=== PATIENT | male | born 1990 | race Caucasian/White ===

== ENCOUNTER 2018-05-16 18:18 | Emergency (ER) | payer MEDICAID, OTHER ==
[2018-05-16 18:48] VITALS: BP 135/93
[2018-05-16] MEDS ORDERED: Tetracaine 0.5% OPTH.SOL 15ML* BTL LEFT EYE ONE (18:52)
[2018-05-16] MEDS ORDERED: Eye Irrigation Solution 30 ML BOTTLE LEFT EYE ONE (18:52)
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
[2018-05-16] MEDS ORDERED: Tetracaine 0.5% OPTH.SOL 4 ML* 1 DROP BTL ONE (18:55)
[2018-05-16] MEDS ORDERED: Fluorescein Sodium TOPICAL* 1 MG TEST STRIP ONE (19:00)
[2018-05-16] MEDS ORDERED: Fluorescein Sodium TOPICAL* 1 MG TEST STRIP OPHTHALMIC ONE (19:20)
[2018-05-16] MEDS ORDERED: Tetan/Diph/Pertus SYR(Tdap)* 0.5 ML SYR(BOOSTRIX) use SYR IM ONE (19:23)
--- NOTE | 2018-05-17 14:48 | UC ---
- Progress Note Progress Note: 05/17/[address] found out that DR Forrester's office is open today until 1400PM. I contacted Pt' s cell phone earlier to left him know that he can be seen today by Dr Forrester. Pt' s phone is wrong, no answer. Pt's father who is the emergency contact was called and a message was left on voice mail to have Pt call back. Selena Pardo PA-C Discharge - Sign-Out/Discharge Documenting (check all that apply): Patient Departure - D/c home All imaging exams completed and their final reports reviewed: No Studies - Discharge Plan Condition: Stable Disposition: HOME Prescriptions: Erythromycin OPTH OINT* [Erythromycin 0.5% OPTH OINT*] 1 applic RIGHT EYE TID # 1 ophth.oint Patient Education Materials: Corneal Abrasion (ED), Eye Foreign Body (ED), Low- Sodium Diet (ED) Forms: *Work Release Referrals: [facility] – [place] [facility] REFERR[facility] [Outside] Anton Forrester MD [Medical Doctor] - 1 Day Additional Instructions: 1-Please apply ophthalmic oint as instructed to avoid any infection. You were given Tetanus vaccine today 2-Please f/u w/ Senior Strategy Manager Dr Forrester as soon as possible for further evaluation and treatment. 3-Keep your eye cover w/ the eye patch x 1 day for comfort. 4-Your BP is elevated today. please decrease salt in your diet, monitor BP and if it continues to be elevated please f/u with your PCP for further management - Billing Disposition and Condition Condition: STABLE Disposition: Home - Attestation Statements Provider Attestation: I was available for consult. This patient was seen by the MORE. The patient was not presented to, seen by, or examined by me. -Talia
== END 2018-05-16 20:00 | disposition home or self-care (01) ==
LOC: UCEAST 18:18
DX: T15.91XA Foreign body on external eye, part unspecified, right eye, initial encounter (principal); S05.01XA Injury of conjunctiva and corneal abrasion without foreign body, right eye, initial encounter; R03.0 Elevated blood-pressure reading, without diagnosis of hypertension; X58.XXXA Exposure to other specified factors, initial encounter; Z88.0 Allergy status to penicillin; Y92.9 Unspecified place or not applicable
CPT/HCPCS: 90471; 90715; 99202; A9270-GY; G0463

== ENCOUNTER 2019-01-11 18:54 | Emergency (ER) | payer OTHER ==
[2019-01-11] MEDS ORDERED: Proparacaine 0.5% OPHTH.SOL* 15 ML BTL LEFT EYE ONE (19:21)
[2019-01-11] MEDS ORDERED: Fluorescein Sodium TOPICAL* 1 MG TEST STRIP OPHTHALMIC ONE (19:21)
[2019-01-11] MEDS ORDERED: Tetracaine 0.5% OPTH.SOL 4 ML* 1 DROP BTL ONE (19:25)
[2019-01-11] MEDS ORDERED: Gentamicin 0.3% OPHTH.SOLN* 5 ML BTL LEFT EYE SCH (19:30)
[2019-01-11] MEDS ORDERED: Tetracaine 0.5% OPTH.SOL 4 ML* 1 DROP BTL RIGHT EYE ONE (19:30)
[2019-01-11] MEDS ORDERED: oxyCODONE TAB* 5 MG TAB PO ONE (20:16)
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
[2019-01-11 21:00] VITALS: BP 125/88
== END 2019-01-11 20:59 | disposition home or self-care (01) ==
LOC: ED 18:54
DX: S05.01XA Injury of conjunctiva and corneal abrasion without foreign body, right eye, initial encounter (principal); H53.8 Other visual disturbances; X58.XXXA Exposure to other specified factors, initial encounter; Y92.9 Unspecified place or not applicable
CPT/HCPCS: 99283; A9270-GY